=== PATIENT | male | born 1980 | race Caucasian/White ===

== ENCOUNTER 2018-01-07 20:43 | Inpatient (IN) | payer MEDICAID, OTHER ==
[~2018-01-07] VITALS: Ht 175.3 cm; Wt 82.1 kg
[2018-01-07] MEDS ORDERED: DIVA125T32 PO (20:59)
[2018-01-07] MEDS ORDERED: QUET100T PO (20:59)
[2018-01-07] MEDS ORDERED: LORA0.5T2 PO (20:59)
[2018-01-07] MEDS ORDERED: LITH300C3 PO (20:59)
[2018-01-07 21:27] LABS: BASOPHILS % (AUTO) 0.3 % (0.0-2.0); EOSINOPHILS % (AUTO) 3.5 % (1.0-6.0); HEMATOCRIT 43.3 % (41-53); HEMOGLOBIN 15.2 g/dL (13.5-17.5); LYMPHOCYTES # (AUTO) 2.2 K/uL (1.0-4.8); LYMPHOCYTES % (AUTO) 25.9 % (22.0-44.0); MEAN CORPUSCULAR HEMOGLOBIN 30.1 pg (26.0-34.0); MEAN CORPUSCULAR HGB CONC 35.1 G/dL (31.0-37.0); MEAN CORPUSCULAR VOLUME 86 fL (80-100); MONOCYTES # (AUTO) 0.7 K/uL (0.1-1.0); MONOCYTES % (AUTO) 8.1 % (2.0-9.0); NEUTROPHILS # (AUTO) 5.2 K/uL (1.8-7.7); NEUTROPHILS % (AUTO) 62.2 % (40.0-70.0); PLATELET COUNT (AUTO) 257 K/uL (150-450); RED BLOOD CELL COUNT(AUTO) 5.04 MIL/uL (4.50-5.90); RED CELL DISTRIBUTION WIDTH 14.2 % (11.5-14.5)
[2018-01-07 21:37] LABS: ANION GAP 5 mmol/L (8-16); CALCIUM, TOTAL 8.7 mg/dL (8.8-10.5); CARBON DIOXIDE 29 mmol/L (22-29); CHLORIDE 104 mmol/L (98-107); CREATININE 1.02 mg/dL (0.60-1.30); GLOMERULAR FILTR. RATE CALC > 60 mL/min (>60); GLUCOSE,RANDOM 65 mg/dL (70-110); POTASSIUM 3.7 mmol/L (3.5-5.1); SODIUM SERUM 138 mmol/L (136-145); UREA NITROGEN, BLOOD 10 mg/dL (7-18)
[2018-01-07 21:38] LABS: AMPHET/METH SCREEN,URINE POSITIVE (NEGATIVE); BARBITURATE SCREEN, URINE NEGATIVE (NEGATIVE); BENZODIAZEPINES SCREEN,URINE NEGATIVE (NEGATIVE); CANNABINOID SCREEN,URINE NEGATIVE (NEGATIVE); COCAINE SCREEN,URINE NEGATIVE (NEGATIVE); METHADONE SCREEN, URINE NEGATIVE (NEGATIVE); OPIATE SCREEN,URINE NEGATIVE (NEGATIVE); PHENCYCLIDINE SCREEN,URINE NEGATIVE (NEGATIVE)
[2018-01-07 21:43] LABS: ALANINE AMINOTRANSFERASE 22 U/L (12-78); ALBUMIN 3.5 g/dL (3.4-5.0); ALKALINE PHOSPHATASE 84 U/L (46-116); ASPARTATE AMINOTRANSFERASE 18 U/L (15-37); BILIRUBIN,TOTAL 0.2 mg/dL (0.1-1.0); TOTAL PROTEIN, SERUM 7.4 g/dL (6.4-8.2)
[2018-01-07 22:20] LABS: LITHIUM < 0.20 mmol/L (0.60-1.20)
[2018-01-07] MEDS ORDERED: QUEtiapine FUMARATE 100 MG TABLET PO ONE (23:30)
[2018-01-07] MEDS ORDERED: DiphenhydrAMINE HCL 25 MG CAPSULE PO ONE (23:30)
[2018-01-07] MEDS ORDERED: HALOPERIDOL 5 MG TABLET PO PRN (23:30)
[2018-01-08 01:21] VITALS: BP 111/85
[2018-01-08 01:22] VITALS: BP 111/85
[2018-01-08 01:23] VITALS: BP 111/85
[2018-01-08 08:03] VITALS: BP 116/62
[2018-01-08] MEDS ORDERED: BISACODYL 5 MG EC TABLET PO PRN (09:15)
[2018-01-08] MEDS: LORazepam 2 MG TABLET PO PRN ×2 (15:11→21:49)
[2018-01-08 16:33] VITALS: BP 131/88
[2018-01-08] MEDS: QUEtiapine FUMARATE 100 MG TABLET PO SCH (21:49)
[2018-01-08] MEDS: ZOLPIDEM TARTRATE 10 MG TABLET PO PRN (21:49)
[2018-01-09] MEDS: LORazepam 2 MG TABLET PO PRN ×3 (01:09→16:30)
[2018-01-09 02:29] VITALS: BP 129/83
[2018-01-09 08:07] VITALS: BP 118/68
[2018-01-09 08:35] LABS: HEMOGLOBIN A1C 5.8 % (4.5-6.2)
[2018-01-09] MEDS: DIVALPROEX SODIUM 500 MG DR TABLET PO SCH (08:35)
[2018-01-09] MEDS: LITHIUM CARBONATE 300 MG CAPSULE PO SCH ×2 (08:35→16:30)
[2018-01-09] MEDS: QUEtiapine FUMARATE 200 MG TABLET PO SCH (08:35)
[2018-01-09 08:49] LABS: CHOL/HDL RATIO 3.1 (4.2-7.3); FREE T4 (FREE THYROXINE) 0.89 ng/dL (0.76-1.46)
[2018-01-09 16:04] VITALS: BP 115/80
[2018-01-09] MEDS: ZOLPIDEM TARTRATE 10 MG TABLET PO PRN (20:22)
[2018-01-09] MEDS: QUEtiapine FUMARATE 100 MG TABLET PO SCH (20:22)
[2018-01-10] MEDS: LORazepam 2 MG TABLET PO PRN ×4 (04:13→21:48)
[2018-01-10] MEDS: DIVALPROEX SODIUM 500 MG DR TABLET PO SCH (08:12)
[2018-01-10] MEDS: LITHIUM CARBONATE 300 MG CAPSULE PO SCH ×2 (08:12→16:22)
[2018-01-10] MEDS: QUEtiapine FUMARATE 200 MG TABLET PO SCH (08:12)
[2018-01-10] MEDS: QUEtiapine FUMARATE 100 MG TABLET PO SCH (20:23)
[2018-01-10] MEDS: ZOLPIDEM TARTRATE 10 MG TABLET PO PRN (21:38)
[2018-01-11] MEDS: LORazepam 2 MG TABLET PO PRN ×3 (04:00→23:37)
[2018-01-11] MEDS: LITHIUM CARBONATE 300 MG CAPSULE PO SCH ×2 (08:37→17:18)
[2018-01-11] MEDS: DIVALPROEX SODIUM 500 MG DR TABLET PO SCH (08:37)
[2018-01-11] MEDS: QUEtiapine FUMARATE 200 MG TABLET PO SCH (08:37)
[2018-01-11 10:00] VITALS: BP 135/73
[2018-01-11] MEDS: QUEtiapine FUMARATE 100 MG TABLET PO SCH (20:23)
[2018-01-11] MEDS: ZOLPIDEM TARTRATE 10 MG TABLET PO PRN (23:37)
[2018-01-12] MEDS ORDERED: IBUPROFEN 600 MG TABLET PO PRN (06:00)
[2018-01-12] MEDS ORDERED: ACETAMINOPHEN 325 MG TABLET PO PRN (06:00)
[2018-01-12 06:53] VITALS: BP 117/75
[2018-01-12] MEDS: QUEtiapine FUMARATE 200 MG TABLET PO SCH (08:06)
[2018-01-12] MEDS: LORazepam 2 MG TABLET PO PRN ×3 (08:07→20:35)
[2018-01-12] MEDS: LITHIUM CARBONATE 300 MG CAPSULE PO SCH ×2 (08:07→16:12)
[2018-01-12] MEDS: DIVALPROEX SODIUM 500 MG DR TABLET PO SCH (08:07)
[2018-01-12] MEDS: QUEtiapine FUMARATE 100 MG TABLET PO SCH (20:35)
[2018-01-12] MEDS: ZOLPIDEM TARTRATE 10 MG TABLET PO PRN (20:35)
[2018-01-13 01:14] VITALS: BP 140/82
[2018-01-13] MEDS: LORazepam 2 MG TABLET PO PRN ×4 (05:24→21:02)
[2018-01-13 09:09] VITALS: BP 114/62
[2018-01-13] MEDS: QUEtiapine FUMARATE 200 MG TABLET PO SCH ×2 (10:27→17:00)
[2018-01-13] MEDS: LITHIUM CARBONATE 300 MG CAPSULE PO SCH ×2 (10:27→17:01)
[2018-01-13] MEDS: DIVALPROEX SODIUM 500 MG DR TABLET PO SCH (10:27)
[2018-01-13 16:43] VITALS: BP 124/80
[2018-01-13] MEDS: ZOLPIDEM TARTRATE 10 MG TABLET PO PRN (21:02)
[2018-01-14] MEDS: LORazepam 2 MG TABLET PO PRN ×2 (05:44→16:16)
[2018-01-14] MEDS: QUEtiapine FUMARATE 200 MG TABLET PO SCH ×2 (08:47→16:16)
[2018-01-14] MEDS: DIVALPROEX SODIUM 500 MG DR TABLET PO SCH (08:47)
[2018-01-14] MEDS: LITHIUM CARBONATE 300 MG CAPSULE PO SCH ×2 (08:47→16:16)
[2018-01-14 11:20] VITALS: BP 123/80
[2018-01-14] MEDS: LORATADINE 10 MG TABLET PO SCH (13:03)
[2018-01-14] MEDS ORDERED: DiphenhydrAMINE HCL 50 MG/ML VIAL IM ONE (18:45)
[2018-01-14] MEDS ORDERED: LORazepam 2 MG/ML VIAL IM ONE (18:45)
[2018-01-14] MEDS ORDERED: HALOPERIDOL LACTATE 5 MG/ML VIAL IM ONE (18:45)
[2018-01-14] MEDS: MAG HYDROX/AL HYDROX/SIMETH 30 ML SUSP UDCUP PO PRN (21:12)
[2018-01-15 01:30] VITALS: BP 131/65
[2018-01-15] MEDS: ZOLPIDEM TARTRATE 10 MG TABLET PO PRN (01:34)
[2018-01-15] MEDS: LORATADINE 10 MG TABLET PO SCH (08:02)
[2018-01-15] MEDS: QUEtiapine FUMARATE 200 MG TABLET PO SCH ×2 (08:02→17:37)
[2018-01-15] MEDS: LORazepam 2 MG TABLET PO PRN (08:05)
[2018-01-15 08:09] VITALS: BP 136/90
[2018-01-15] MEDS: DIVALPROEX SODIUM 500 MG DR TABLET PO SCH (09:00)
[2018-01-15] MEDS: LITHIUM CARBONATE 300 MG CAPSULE PO SCH ×2 (09:00→17:37)
[2018-01-15] MEDS: MAG HYDROX/AL HYDROX/SIMETH 30 ML SUSP UDCUP PO PRN (12:33)
[2018-01-15] MEDS: ONDANSETRON HCL 4 MG TABLET PO PRN (17:37)
[2018-01-16] MEDS: ZOLPIDEM TARTRATE 10 MG TABLET PO PRN ×2 (00:04→20:16)
[2018-01-16] MEDS: ONDANSETRON HCL 4 MG TABLET PO PRN ×3 (00:05→15:04)
[2018-01-16 04:39] VITALS: BP 132/90
[2018-01-16 08:00] VITALS: BP 131/82
[2018-01-16] MEDS: QUEtiapine FUMARATE 200 MG TABLET PO SCH ×2 (08:40→16:21)
[2018-01-16] MEDS: LORATADINE 10 MG TABLET PO SCH (08:41)
[2018-01-16] MEDS: DIVALPROEX SODIUM 500 MG DR TABLET PO SCH (08:42)
[2018-01-16] MEDS: LITHIUM CARBONATE 300 MG CAPSULE PO SCH ×2 (08:42→16:21)
[2018-01-16 09:33] LABS: VALPROIC ACID 9 mcg/mL (50-100)
[2018-01-16 10:01] LABS: LITHIUM < 0.20 mmol/L (0.60-1.20)
[2018-01-16] MEDS: MAG HYDROX/AL HYDROX/SIMETH 30 ML SUSP UDCUP PO PRN (12:29)
[2018-01-16 16:00] VITALS: BP 117/79
[2018-01-17 02:30] VITALS: BP 138/81
[2018-01-17] MEDS: LORATADINE 10 MG TABLET PO SCH (08:22)
[2018-01-17] MEDS: LITHIUM CARBONATE 300 MG CAPSULE PO SCH ×2 (08:22→17:16)
[2018-01-17] MEDS: QUEtiapine FUMARATE 200 MG TABLET PO SCH (08:22)
[2018-01-17] MEDS: DIVALPROEX SODIUM 500 MG DR TABLET PO SCH (08:22)
[2018-01-17 08:24] VITALS: BP 132/100
[2018-01-17] MEDS: MAG HYDROX/AL HYDROX/SIMETH 30 ML SUSP UDCUP PO PRN ×2 (12:30→20:54)
[2018-01-17] MEDS: ONDANSETRON HCL 4 MG TABLET PO PRN (12:33)
[2018-01-17] MEDS ORDERED: LOPERAMIDE HCL 2 MG CAPSULE PO PRN (15:15)
[2018-01-17] MEDS ORDERED: NICOTINE 21 MG/24 HOUR PATCH TD SCH (15:30)
[2018-01-17 16:23] VITALS: BP 127/78
[2018-01-17] MEDS ORDERED: QUEtiapine FUMARATE 300 MG TABLET PO SCH (17:00)
[2018-01-17] MEDS: ZOLPIDEM TARTRATE 10 MG TABLET PO PRN (20:32)
[2018-01-17] MEDS ORDERED: QUET300T2 PO (22:31)
[2018-01-17] MEDS ORDERED: ONDA4 PO (22:31)
[2018-01-17] MEDS ORDERED: LOPE2 PO (22:31)
[2018-01-17] MEDS ORDERED: LORA10TA7 PO (22:31)
[2018-01-17] MEDS ORDERED: ZOLP10TA7 PO (22:31)
[2018-01-17] MEDS ORDERED: NICO-650 MISC (22:31)
[2018-01-19] MEDS ORDERED: DIVA-78 PO (14:03)
== END 2018-01-18 03:06 | disposition short-term general hospital (02) | DRG 750 ==
LOC: EMS 20:44 → B3A 23:34 → UNDOADMIN 23:34 → EMS 01-08 00:43
PROVIDERS: ADMIT Psychiatry & Neurology Psychiatry; ATTEND Psychiatry & Neurology Psychiatry
DX: F25.9 Schizoaffective disorder, unspecified (principal); R45.851 Suicidal ideations; K59.00 Constipation, unspecified; Z88.8 Allergy status to other drugs, medicaments and biological substances; Z88.5 Allergy status to narcotic agent; Z79.899 Other long term (current) drug therapy; F43.10 Post-traumatic stress disorder, unspecified; F15.11 Other stimulant abuse, in remission
CPT/HCPCS: 83036; 84439; 99285; G0480; J1200; J1630; J2060; Q0162

== ENCOUNTER 2018-01-17 22:15 | Inpatient (IN) | payer MEDICAID, OTHER ==
[~2018-01-17] VITALS: Ht 175.3 cm; Wt 82.4 kg
[~2018-01-17 22:15] MED LIST: DIVA125T32 PO; LITH300C3 PO; LORA0.5T2 PO; QUET100T PO
[2018-01-17] MEDS ORDERED: ONDA4 PO (22:31)
[2018-01-17] MEDS ORDERED: LORA10TA7 PO (22:31)
[2018-01-17] MEDS ORDERED: ZOLP10TA7 PO (22:31)
[2018-01-17] MEDS ORDERED: NICO-650 MISC (22:31)
[2018-01-17] MEDS ORDERED: QUET300T2 PO (22:31)
[2018-01-17] MEDS ORDERED: LOPE2 PO (22:31)
[2018-01-17 23:00] LABS: APPEARANCE,URINE CLEAR (CLEAR); BILIRUBIN,URINE NEGATIVE (NEGATIVE); GLUCOSE, URINE (UA) NEGATIVE (NEGATIVE); KETONES,URINE NEGATIVE (NEGATIVE); LEUKOCYTE ESTERASE ,URINE NEGATIVE (NEGATIVE); NITRATE,URINE NEGATIVE (NEGATIVE); OCCULT BLOOD,URINE NEGATIVE (NEGATIVE); PH,URINE 7.5 (5.0-8.0); PROTEIN,URINE NEGATIVE (NEGATIVE); UROBILINOGEN,URINE 0.2 mg/dL (<=1.0)
[2018-01-17 23:06] LABS: HEMATOCRIT 43.6 % (41-53); HEMOGLOBIN 14.9 g/dL (13.5-17.5); MEAN CORPUSCULAR HEMOGLOBIN 29.3 pg (26.0-34.0); MEAN CORPUSCULAR HGB CONC 34.1 G/dL (31.0-37.0); MEAN CORPUSCULAR VOLUME 86 fL (80-100); PLATELET COUNT (AUTO) 217 K/uL (150-450); RED BLOOD CELL COUNT(AUTO) 5.07 MIL/uL (4.50-5.90); RED CELL DISTRIBUTION WIDTH 14.6 % (11.5-14.5)
[2018-01-17] MEDS ORDERED: ONDANSETRON HCL 4 MG/2 ML VIAL IVP ONE (23:15)
[2018-01-17] MEDS ORDERED: DICYCLOMINE HCL 20 MG TABLET PO ONE (23:15)
[2018-01-17 23:17] LABS: BACTERIA,URINE None Seen /HPF (None Seen); RBC,URINE None Seen /HPF (0-2); SQUAMOUS EPITHELIAL CELL,UR None Seen /LPF (None Seen); WBC,URINE None Seen /HPF (0-5)
[2018-01-17 23:20] LABS: ANION GAP 8 mmol/L (8-16); CALCIUM, TOTAL 9.2 mg/dL (8.8-10.5); CARBON DIOXIDE 30 mmol/L (22-29); CHLORIDE 99 mmol/L (98-107); CREATININE 0.96 mg/dL (0.60-1.30); GLOMERULAR FILTR. RATE CALC > 60 mL/min (>60); GLUCOSE,RANDOM 115 mg/dL (70-110); POTASSIUM 4.6 mmol/L (3.5-5.1); SODIUM SERUM 137 mmol/L (136-145); UREA NITROGEN, BLOOD 17 mg/dL (7-18)
[2018-01-17 23:24] LABS: ALANINE AMINOTRANSFERASE 34 U/L (12-78); ALBUMIN 3.7 g/dL (3.4-5.0); ALKALINE PHOSPHATASE 63 U/L (46-116); ASPARTATE AMINOTRANSFERASE 24 U/L (15-37); BILIRUBIN,TOTAL 0.2 mg/dL (0.1-1.0); LIPASE 115 U/L (73-393); TOTAL PROTEIN, SERUM 7.8 g/dL (6.4-8.2)
[2018-01-17] MEDS ORDERED: LORazepam 2 MG/ML VIAL IVP ONE (23:30)
[2018-01-17] MEDS ORDERED: IOVERSOL 320 MG/ML 100 ML VIAL ONE (23:38)
[2018-01-17] MEDS ORDERED: SODIUM CHLORIDE 0.9% 100 ML ONE (23:38)
[2018-01-17 23:40] LABS: BAND NEUTROPHILS % (MANUAL) 11 % (0-5); EOSINOPHILS % (MANUAL) 2 % (1-6); LYMPHOCYTES % (MANUAL) 11 % (22-44); MONOCYTES % (MANUAL) 3 % (2-9); REACTIVE LYMPHOCYTES 1 % (0-0); SEGMENTED NEUTROPHILS % 72 % (40-70)
[2018-01-17] MEDS ORDERED: DiphenhydrAMINE HCL 50 MG/ML VIAL IVP ONE (23:45)
[2018-01-17] MEDS ORDERED: HALOPERIDOL LACTATE 5 MG/ML VIAL IM ONE (23:45)
[2018-01-18] MEDS ORDERED: SODIUM CHLORIDE 0.9% 1,000 ML IV ONE
[2018-01-18] MEDS ORDERED: CIPROFLOXACIN 400 MG/D5% WATER 200 ML IV ONE (01:15)
[2018-01-18] MEDS ORDERED: MetroNIDAZOLE 500 MG/NACL 100 ML IV ONE (02:00)
[2018-01-18] MEDS ORDERED: 0.9% SODIUM CHLORIDE 10 ML SYRINGE IVP PRN ×2 (02:00→07:15)
[2018-01-18] MEDS ORDERED: ACETAMINOPHEN 325 MG TABLET PO PRN (02:00)
[2018-01-18] MEDS ORDERED: LORazepam 2 MG/ML VIAL IVP ONE (02:00)
[2018-01-18] MEDS ORDERED: ONDANSETRON HCL 4 MG/2 ML VIAL IVP PRN ×2 (02:00→07:15)
[2018-01-18 02:50] LABS: LACTIC ACID 2.2 mmol/L (0.4-2.0)
[2018-01-18] MEDS ORDERED: SODIUM CHLORIDE 0.9% 100 ML ONE (02:53)
[2018-01-18 02:59] VITALS: BP 115/78
[2018-01-18] MEDS ORDERED: ZOLPIDEM TARTRATE 10 MG TABLET PO PRN (07:15)
[2018-01-18] MEDS ORDERED: ONDANSETRON HCL 4 MG TABLET PO PRN (07:15)
[2018-01-18] MEDS ORDERED: ZOLPIDEM TARTRATE 5 MG TABLET PO PRN (07:15)
[2018-01-18 07:48] VITALS: BP 141/56
[2018-01-18] MEDS: SODIUM CHLORIDE 0.9% 1,000 ML IV SCH (08:57)
[2018-01-18] MEDS: PANTOPRAZOLE SODIUM 40 MG/VIAL IVP SCH (08:57)
[2018-01-18] MEDS: LORATADINE 10 MG TABLET PO SCH (08:58)
[2018-01-18] MEDS: QUEtiapine FUMARATE 300 MG TABLET PO SCH ×2 (08:58→20:21)
[2018-01-18] MEDS: MetroNIDAZOLE 500 MG/NACL 100 ML IV SCH ×2 (11:26→17:42)
[2018-01-18 12:00] VITALS: BP 101/58
[2018-01-18] MEDS: CIPROFLOXACIN 400 MG/D5% WATER 200 ML IV SCH (15:19)
[2018-01-18 15:35] VITALS: BP 103/71
[2018-01-18 19:53] VITALS: BP 123/62
[2018-01-18 23:33] VITALS: BP 123/65
[2018-01-19] MEDS: SODIUM CHLORIDE 0.9% 1,000 ML IV SCH
[2018-01-19] MEDS: CIPROFLOXACIN 400 MG/D5% WATER 200 ML IV SCH (02:27)
[2018-01-19] MEDS: MetroNIDAZOLE 500 MG/NACL 100 ML IV SCH ×2 (03:36→09:15)
[2018-01-19 05:28] VITALS: BP 104/72
[2018-01-19 06:13] LABS: BASOPHILS % (AUTO) 0.3 % (0.0-2.0); EOSINOPHILS % (AUTO) 5.3 % (1.0-6.0); HEMATOCRIT 40.1 % (41-53); HEMOGLOBIN 13.8 g/dL (13.5-17.5); LYMPHOCYTES # (AUTO) 2.3 K/uL (1.0-4.8); LYMPHOCYTES % (AUTO) 24.4 % (22.0-44.0); MEAN CORPUSCULAR HGB CONC 34.5 G/dL (31.0-37.0); MEAN CORPUSCULAR VOLUME 87 fL (80-100); MONOCYTES # (AUTO) 1.2 K/uL (0.1-1.0); MONOCYTES % (AUTO) 12.4 % (2.0-9.0); NEUTROPHILS # (AUTO) 5.4 K/uL (1.8-7.7); NEUTROPHILS % (AUTO) 57.6 % (40.0-70.0); PLATELET COUNT (AUTO) 216 K/uL (150-450); RED BLOOD CELL COUNT(AUTO) 4.61 MIL/uL (4.50-5.90); RED CELL DISTRIBUTION WIDTH 14.8 % (11.5-14.5)
[2018-01-19 06:31] LABS: ALANINE AMINOTRANSFERASE 27 U/L (12-78); ALKALINE PHOSPHATASE 53 U/L (46-116); ANION GAP 7 mmol/L (8-16); ASPARTATE AMINOTRANSFERASE 16 U/L (15-37); BILIRUBIN,TOTAL 0.3 mg/dL (0.1-1.0); CALCIUM, TOTAL 8.4 mg/dL (8.8-10.5); CARBON DIOXIDE 27 mmol/L (22-29); CHLORIDE 104 mmol/L (98-107); CREATININE 0.89 mg/dL (0.60-1.30); GLOMERULAR FILTR. RATE CALC > 60 mL/min (>60); GLUCOSE,RANDOM 106 mg/dL (70-110); POTASSIUM 3.9 mmol/L (3.5-5.1); SODIUM SERUM 138 mmol/L (136-145); TOTAL PROTEIN, SERUM 6.4 g/dL (6.4-8.2); UREA NITROGEN, BLOOD 13 mg/dL (7-18)
[2018-01-19 07:54] VITALS: BP 118/64
[2018-01-19] MEDS: LORATADINE 10 MG TABLET PO SCH (07:54)
[2018-01-19] MEDS: QUEtiapine FUMARATE 300 MG TABLET PO SCH ×2 (07:54→20:15)
[2018-01-19] MEDS: PANTOPRAZOLE SODIUM 40 MG/VIAL IVP SCH ×2 (07:55→09:20)
[2018-01-19 12:32] VITALS: BP 107/65
[2018-01-19] MEDS ORDERED: DIVA-78 PO (14:03)
[2018-01-19 15:37] VITALS: BP 110/70
[2018-01-19] MEDS: MetroNIDAZOLE 500 MG TABLET PO SCH ×2 (16:22→23:18)
[2018-01-19] MEDS: NICOTINE 21 MG/24 HOUR PATCH TD SCH (16:22)
[2018-01-19 19:14] VITALS: BP 134/89
[2018-01-19] MEDS: LITHIUM CARBONATE 300 MG CAPSULE PO SCH (20:15)
[2018-01-19] MEDS: DIVALPROEX SODIUM 500 MG DR TABLET PO SCH (20:15)
[2018-01-19] MEDS: CIPROFLOXACIN HCL 500 MG TABLET PO SCH (20:15)
[2018-01-19] MEDS ORDERED: ZOLPIDEM TARTRATE 10 MG TABLET PO PRN (21:15)
[2018-01-19 23:07] VITALS: BP 129/77
[2018-01-20 03:38] VITALS: BP 115/78
[2018-01-20 07:10] VITALS: BP 127/71
[2018-01-20] MEDS: LITHIUM CARBONATE 300 MG CAPSULE PO SCH (07:53)
[2018-01-20] MEDS: MetroNIDAZOLE 500 MG TABLET PO SCH (07:53)
[2018-01-20] MEDS: NICOTINE 21 MG/24 HOUR PATCH TD SCH (07:53)
[2018-01-20] MEDS: CIPROFLOXACIN HCL 500 MG TABLET PO SCH (07:54)
[2018-01-20] MEDS: QUEtiapine FUMARATE 300 MG TABLET PO SCH (07:54)
[2018-01-20] MEDS: DIVALPROEX SODIUM 500 MG DR TABLET PO SCH (07:54)
[2018-01-20 11:00] VITALS: BP 137/80
== END 2018-01-20 14:48 | disposition home or self-care (01) | DRG 249 ==
LOC: EMS 22:17 → 5S 01-18 01:30 → 6N 01-18 16:30
PROVIDERS: ADMIT Internal Medicine; ATTEND Internal Medicine
DX: A08.4 Viral intestinal infection, unspecified (principal); F95.2 Tourette's disorder; F20.9 Schizophrenia, unspecified; F43.10 Post-traumatic stress disorder, unspecified; E86.0 Dehydration; Z87.891 Personal history of nicotine dependence; Z88.5 Allergy status to narcotic agent; Z88.8 Allergy status to other drugs, medicaments and biological substances
CPT/HCPCS: 74177; 83605; 83735; 87040; 96365; 96375; 96376; 99285; C9113; J0744; J1200; J2060; J2405; J3490; J7030; J7050

== ENCOUNTER 2018-06-11 17:07 | Inpatient (IN) | payer MEDICAID, OTHER ==
[~2018-06-11] VITALS: Ht 175.3 cm; Wt 82.3 kg
[~2018-06-11 17:07] MED LIST changes: +DIVA-78 PO; -DIVA125T32 PO; -LITH300C3 PO; -LORA0.5T2 PO; -QUET100T PO; +QUET300T2 PO
[2018-06-11] MEDS ORDERED: ARIP2 PO (18:09)
[2018-06-11] MEDS ORDERED: ZOLP5 PO (18:09)
[2018-06-11] MEDS ORDERED: OLAN2.5T3 PO (18:09)
[2018-06-11] MEDS ORDERED: LITH300C3 PO (18:09)
[2018-06-11] MEDS ORDERED: DiphenhydrAMINE HCL 50 MG/ML VIAL IM ONE (18:30)
[2018-06-11] MEDS ORDERED: QUEtiapine FUMARATE 100 MG TABLET PO ONE (18:30)
[2018-06-11] MEDS ORDERED: LORazepam 2 MG/ML VIAL IM ONE (18:30)
[2018-06-11 18:41] LABS: BASOPHILS % (AUTO) 0.3 % (0.0-2.0); EOSINOPHILS % (AUTO) 5.2 % (1.0-6.0); HEMOGLOBIN 15.7 g/dL (13.5-17.5); LYMPHOCYTES # (AUTO) 1.7 K/uL (1.0-4.8); LYMPHOCYTES % (AUTO) 17.2 % (22.0-44.0); MEAN CORPUSCULAR HEMOGLOBIN 30.3 pg (26.0-34.0); MEAN CORPUSCULAR HGB CONC 34.9 G/dL (31.0-37.0); MEAN CORPUSCULAR VOLUME 87 fL (80-100); MONOCYTES # (AUTO) 0.7 K/uL (0.1-1.0); MONOCYTES % (AUTO) 6.8 % (2.0-9.0); NEUTROPHILS # (AUTO) 6.9 K/uL (1.8-7.7); NEUTROPHILS % (AUTO) 70.5 % (40.0-70.0); PLATELET COUNT (AUTO) 241 K/uL (150-450); RED CELL DISTRIBUTION WIDTH 14.4 % (11.5-14.5)
[2018-06-11 18:52] LABS: ANION GAP 5 mmol/L (8-16); CALCIUM, TOTAL 8.8 mg/dL (8.8-10.5); CARBON DIOXIDE 30 mmol/L (22-29); CHLORIDE 104 mmol/L (98-107); CREATININE 1.55 mg/dL (0.60-1.30); GLOMERULAR FILTR. RATE CALC 51 mL/min (>60); GLUCOSE,RANDOM 98 mg/dL (70-110); POTASSIUM 4.2 mmol/L (3.5-5.1); SODIUM SERUM 139 mmol/L (136-145); UREA NITROGEN, BLOOD 18 mg/dL (7-18)
[2018-06-11 18:55] LABS: AMPHET/METH SCREEN,URINE NEGATIVE (NEGATIVE); BARBITURATE SCREEN, URINE NEGATIVE (NEGATIVE); BENZODIAZEPINES SCREEN,URINE NEGATIVE (NEGATIVE); CANNABINOID SCREEN,URINE NEGATIVE (NEGATIVE); COCAINE SCREEN,URINE NEGATIVE (NEGATIVE); METHADONE SCREEN, URINE NEGATIVE (NEGATIVE); OPIATE SCREEN,URINE NEGATIVE (NEGATIVE)
[2018-06-11 18:56] LABS: PHENCYCLIDINE SCREEN,URINE NEGATIVE (NEGATIVE)
[2018-06-11 18:57] LABS: ALANINE AMINOTRANSFERASE 24 U/L (12-78); ALBUMIN 3.9 g/dL (3.4-5.0); ALKALINE PHOSPHATASE 61 U/L (46-116); ASPARTATE AMINOTRANSFERASE 17 U/L (15-37); BILIRUBIN,TOTAL 0.1 mg/dL (0.1-1.0); TOTAL PROTEIN, SERUM 7.6 g/dL (6.4-8.2)
[2018-06-11 20:40] VITALS: BP 128/77
[2018-06-11] MEDS ORDERED: PETROLATUM,WHITE 71 GM JELLY TP PRN (21:15)
[2018-06-11] MEDS ORDERED: ACETAMINOPHEN 325 MG TABLET PO PRN (21:15)
[2018-06-11] MEDS ORDERED: IBUPROFEN 400 MG TABLET PO PRN (21:15)
[2018-06-11] MEDS ORDERED: DOCUSATE SODIUM 100 MG CAPSULE PO PRN (21:15)
[2018-06-11] MEDS ORDERED: NICOTINE 14 MG/24 HOUR PATCH TD PRN (21:15)
[2018-06-11] MEDS ORDERED: ALBUTEROL SULFATE HFA 90 MCG/PUFF 8 GM INHALER IH PRN (21:15)
[2018-06-11] MEDS ORDERED: MAGNESIUM HYDROXIDE SUSPENSION 30 ML UDCUP PO PRN (21:15)
[2018-06-11] MEDS ORDERED: ONDANSETRON HCL 4 MG TABLET PO PRN (21:15)
[2018-06-11] MEDS ORDERED: GuaiFENesin/D-METHORPHAN [SUGAR-FREE] 200-20MG/10 ML SYRUP UDCUP PO PRN (21:15)
[2018-06-11] MEDS ORDERED: MAG HYDROX/AL HYDROX/SIMETH ES 30 ML SUSPENSION UDCUP PO PRN (21:15)
[2018-06-11] MEDS ORDERED: CloNIDine HCL 0.1 MG TABLET PO PRN (21:15)
[2018-06-11] MEDS ORDERED: LOPERAMIDE HCL 2 MG CAPSULE PO PRN (21:15)
[2018-06-12 08:40] VITALS: BP 133/80
[2018-06-12 16:28] VITALS: BP 123/78
[2018-06-12] MEDS: QUEtiapine FUMARATE 300 MG TABLET PO SCH (17:07)
[2018-06-12] MEDS: LORazepam 2 MG TABLET PO PRN (17:40)
[2018-06-13] MEDS: OLANZapine 5 MG TABLET PO SCH (08:03)
[2018-06-13] MEDS: QUEtiapine FUMARATE 300 MG TABLET PO SCH ×2 (08:03→17:37)
[2018-06-13] MEDS: DIVALPROEX SODIUM 500 MG DR TABLET PO SCH (08:03)
[2018-06-13] MEDS: LITHIUM CARBONATE 300 MG CAPSULE PO SCH (08:03)
[2018-06-13 08:36] VITALS: BP 100/60
[2018-06-13 16:45] VITALS: BP 100/61
[2018-06-13] MEDS: ZOLPIDEM TARTRATE 10 MG TABLET PO PRN (21:27)
[2018-06-14] MEDS: DIVALPROEX SODIUM 500 MG DR TABLET PO SCH (08:45)
[2018-06-14] MEDS: OLANZapine 5 MG TABLET PO SCH (08:45)
[2018-06-14] MEDS: LITHIUM CARBONATE 300 MG CAPSULE PO SCH (08:46)
[2018-06-14] MEDS: QUEtiapine FUMARATE 300 MG TABLET PO SCH ×2 (08:47→17:37)
[2018-06-14] MEDS: LORazepam 2 MG TABLET PO PRN (12:01)
[2018-06-14 16:23] VITALS: BP 116/71
[2018-06-14] MEDS: ZOLPIDEM TARTRATE 10 MG TABLET PO PRN (20:48)
[2018-06-15] MEDS: LORazepam 2 MG TABLET PO PRN ×3 (03:24→23:43)
[2018-06-15] MEDS: QUEtiapine FUMARATE 300 MG TABLET PO SCH ×2 (08:39→17:51)
[2018-06-15] MEDS: LITHIUM CARBONATE 300 MG CAPSULE PO SCH ×2 (08:39→17:51)
[2018-06-15] MEDS: OLANZapine 5 MG TABLET PO SCH (08:39)
[2018-06-15] MEDS: DIVALPROEX SODIUM 500 MG DR TABLET PO SCH (08:40)
[2018-06-15] MEDS ORDERED: LORazepam 2 MG/ML VIAL ONE (10:50)
[2018-06-15] MEDS ORDERED: LORazepam 2 MG/ML VIAL IM ONE (11:00)
[2018-06-15] MEDS: ZOLPIDEM TARTRATE 10 MG TABLET PO PRN (21:53)
[2018-06-15] MEDS: QUEtiapine FUMARATE 100 MG TABLET PO PRN (23:43)
[2018-06-16] MEDS: QUEtiapine FUMARATE 100 MG TABLET PO PRN (05:22)
[2018-06-16] MEDS: LORazepam 2 MG TABLET PO PRN ×3 (05:22→19:00)
[2018-06-16] MEDS: DIVALPROEX SODIUM 500 MG DR TABLET PO SCH (08:17)
[2018-06-16] MEDS: QUEtiapine FUMARATE 300 MG TABLET PO SCH ×2 (08:17→18:00)
[2018-06-16] MEDS: LITHIUM CARBONATE 300 MG CAPSULE PO SCH ×2 (08:17→18:00)
[2018-06-16] MEDS: OLANZapine 10 MG TABLET PO SCH (11:59)
[2018-06-16] MEDS: ZOLPIDEM TARTRATE 10 MG TABLET PO PRN (21:00)
[2018-06-17] MEDS: LORazepam 2 MG TABLET PO PRN ×3 (00:01→20:32)
[2018-06-17] MEDS: QUEtiapine FUMARATE 100 MG TABLET PO PRN (00:01)
[2018-06-17] MEDS: QUEtiapine FUMARATE 300 MG TABLET PO SCH ×2 (09:58→16:14)
[2018-06-17] MEDS: OLANZapine 10 MG TABLET PO SCH (09:58)
[2018-06-17] MEDS: LITHIUM CARBONATE 300 MG CAPSULE PO SCH ×2 (09:59→16:14)
[2018-06-17] MEDS: DIVALPROEX SODIUM 500 MG DR TABLET PO SCH (09:59)
[2018-06-17] MEDS: ZOLPIDEM TARTRATE 10 MG TABLET PO PRN (20:32)
[2018-06-18] MEDS: LORazepam 2 MG TABLET PO PRN ×3 (00:53→13:38)
[2018-06-18] MEDS: QUEtiapine FUMARATE 100 MG TABLET PO PRN ×3 (00:53→13:39)
[2018-06-18] MEDS: OLANZapine 10 MG TABLET PO SCH ×2 (07:58→17:01)
[2018-06-18] MEDS: LITHIUM CARBONATE 300 MG CAPSULE PO SCH ×3 (07:58→17:01)
[2018-06-18] MEDS: QUEtiapine FUMARATE 300 MG TABLET PO SCH (07:58)
[2018-06-18] MEDS: DIVALPROEX SODIUM 500 MG DR TABLET PO SCH (07:58)
[2018-06-18 09:21] VITALS: BP 119/87
[2018-06-18] MEDS ORDERED: LORazepam 2 MG/ML VIAL IM ONE (18:15)
[2018-06-18] MEDS ORDERED: DiphenhydrAMINE HCL 50 MG/ML VIAL IM ONE (18:15)
[2018-06-18] MEDS: ZOLPIDEM TARTRATE 10 MG TABLET PO PRN (21:17)
[2018-06-19] MEDS: LORazepam 2 MG TABLET PO PRN ×4 (03:10→20:45)
[2018-06-19] MEDS: QUEtiapine FUMARATE 100 MG TABLET PO PRN ×4 (03:10→20:45)
[2018-06-19] MEDS: LITHIUM CARBONATE 300 MG CAPSULE PO SCH ×3 (08:05→16:13)
[2018-06-19] MEDS: OLANZapine 10 MG TABLET PO SCH ×2 (08:05→16:13)
[2018-06-19 16:30] VITALS: BP 128/79
[2018-06-19] MEDS: ZOLPIDEM TARTRATE 10 MG TABLET PO PRN (22:00)
[2018-06-19] MEDS ORDERED: LORazepam 2 MG/ML VIAL IM ONE (23:15)
[2018-06-19] MEDS ORDERED: DiphenhydrAMINE HCL 50 MG/ML VIAL IM ONE (23:15)
[2018-06-20] MEDS: QUEtiapine FUMARATE 100 MG TABLET PO PRN ×4 (00:46→20:15)
[2018-06-20] MEDS: LORazepam 2 MG TABLET PO PRN ×4 (00:46→22:03)
[2018-06-20] MEDS: LITHIUM CARBONATE 300 MG CAPSULE PO SCH ×3 (07:20→16:02)
[2018-06-20] MEDS: OLANZapine 10 MG TABLET PO SCH ×2 (07:20→16:02)
[2018-06-20] MEDS ORDERED: DiphenhydrAMINE HCL 50 MG/ML VIAL IM ONE ×2 (09:00→16:30)
[2018-06-20 09:42] VITALS: BP 140/98
[2018-06-20] MEDS ORDERED: LORazepam 2 MG/ML VIAL IM ONE (16:30)
[2018-06-20] MEDS: ZOLPIDEM TARTRATE 10 MG TABLET PO PRN (22:03)
[2018-06-21] MEDS: QUEtiapine FUMARATE 100 MG TABLET PO PRN ×3 (03:48→12:58)
[2018-06-21] MEDS: LORazepam 2 MG TABLET PO PRN ×4 (03:49→18:33)
[2018-06-21] MEDS: OLANZapine 10 MG TABLET PO SCH (07:29)
[2018-06-21] MEDS: LITHIUM CARBONATE 300 MG CAPSULE PO SCH ×3 (07:29→16:26)
[2018-06-21 16:24] VITALS: BP 113/76
[2018-06-21] MEDS: QUEtiapine FUMARATE 200 MG TABLET PO SCH (16:26)
[2018-06-21] MEDS: DIVALPROEX SODIUM 500 MG DR TABLET PO SCH (16:27)
[2018-06-21] MEDS: ZOLPIDEM TARTRATE 10 MG TABLET PO PRN (20:30)
[2018-06-21] MEDS: ChlorproMAZINE HCL 50 MG TABLET PO PRN (22:18)
[2018-06-21] MEDS ORDERED: DiphenhydrAMINE HCL 50 MG/ML VIAL IM ONE (23:30)
[2018-06-21] MEDS ORDERED: LORazepam 2 MG/ML VIAL IM ONE (23:30)
[2018-06-22] MEDS: LITHIUM CARBONATE 300 MG CAPSULE PO SCH ×3 (08:14→17:11)
[2018-06-22] MEDS: DIVALPROEX SODIUM 500 MG DR TABLET PO SCH ×3 (08:14→17:00)
[2018-06-22] MEDS: QUEtiapine FUMARATE 200 MG TABLET PO SCH ×2 (08:14→14:09)
[2018-06-22 08:18] VITALS: BP 152/69
[2018-06-22] MEDS: LORazepam 2 MG TABLET PO PRN (10:27)
[2018-06-22 16:05] VITALS: BP_SYST 105; BP_SYST 68; BP_DIAS 72; BP_DIAS 80
[2018-06-22] MEDS: QUEtiapine FUMARATE 300 MG TABLET PO SCH ×2 (17:11→20:16)
[2018-06-22] MEDS: ZOLPIDEM TARTRATE 10 MG TABLET PO PRN (20:33)
[2018-06-23] MEDS: LORazepam 2 MG TABLET PO PRN ×2 (00:23→16:56)
[2018-06-23] MEDS: ChlorproMAZINE HCL 50 MG TABLET PO PRN ×3 (04:12→17:20)
[2018-06-23 08:12] VITALS: BP 140/95
[2018-06-23] MEDS: DIVALPROEX SODIUM 500 MG DR TABLET PO SCH ×3 (09:00→16:56)
[2018-06-23] MEDS: QUEtiapine FUMARATE 200 MG TABLET PO SCH (09:40)
[2018-06-23] MEDS: LITHIUM CARBONATE 300 MG CAPSULE PO SCH ×3 (09:40→16:56)
[2018-06-23] MEDS: QUEtiapine FUMARATE 300 MG TABLET PO SCH ×2 (16:56→21:42)
[2018-06-23 17:32] VITALS: BP 129/77
[2018-06-23] MEDS ORDERED: DiphenhydrAMINE HCL 50 MG/ML VIAL IM ONE (19:45)
[2018-06-23] MEDS ORDERED: LORazepam 2 MG/ML VIAL IM ONE (19:45)
[2018-06-24] MEDS: LORazepam 2 MG TABLET PO PRN ×3 (01:35→12:18)
[2018-06-24] MEDS: ZOLPIDEM TARTRATE 10 MG TABLET PO PRN (01:35)
[2018-06-24] MEDS: ChlorproMAZINE HCL 50 MG TABLET PO PRN ×2 (05:47→12:17)
[2018-06-24] MEDS: LITHIUM CARBONATE 300 MG CAPSULE PO SCH ×2 (07:38→12:17)
[2018-06-24] MEDS: DIVALPROEX SODIUM 500 MG DR TABLET PO SCH ×3 (07:38→12:21)
[2018-06-24] MEDS: QUEtiapine FUMARATE 200 MG TABLET PO SCH (07:38)
[2018-06-24 08:02] VITALS: BP 141/83
[2018-06-24] MEDS ORDERED: QUET200T PO (10:06)
[2018-06-24] MEDS ORDERED: QUET300T2 PO (10:07)
== END 2018-06-24 14:15 | disposition home or self-care (01) | DRG 750 ==
LOC: EMS 17:08 → 3EC 19:55
PROVIDERS: ADMIT Psychiatry & Neurology Child & Adolescent Psychiatry; ATTEND Psychiatry & Neurology Child & Adolescent Psychiatry
DX: F20.0 Paranoid schizophrenia (principal); F95.2 Tourette's disorder; R45.851 Suicidal ideations; I10 Essential (primary) hypertension; F43.10 Post-traumatic stress disorder, unspecified; F17.210 Nicotine dependence, cigarettes, uncomplicated; Z28.21 Immunization not carried out because of patient refusal; Z88.8 Allergy status to other drugs, medicaments and biological substances; Z79.899 Other long term (current) drug therapy
CPT/HCPCS: 96372; G0480; J1200; J2060; J3230

== ENCOUNTER 2025-01-12 01:41 | Emergency (ER) | payer MEDICAID, OTHER ==
[~2025-01-12] VITALS: Ht 172.7 cm; Wt 92.0 kg
[~2025-01-12 01:41] MED LIST changes: +DIVA-112 PO; -DIVA-78 PO; +OLAN15TA98 PO; -QUET300T2 PO; +QUET400T PO
[2025-01-12 04:00] VITALS: TEMP 98.1
[2025-01-12 04:46] VITALS: BP 118/65; PULSE 91; RESP 16; O2SAT 97
[2025-01-12 04:50] LABS: COVID AG,FIA SOURCE NASAL SWAB
[2025-01-12 06:02] LABS: SARS-COV2 (COVID) ANTIGEN,FIA Negative (Negative)
[2025-01-12] MEDS: ACETAMINOPHEN 500 MG TABLET PO ONE (07:28)
== END 2025-01-12 10:11 | disposition home or self-care (01) ==
LOC: EMS 01:44
DX: F20.9 Schizophrenia, unspecified (principal); Z79.899 Other long term (current) drug therapy; Z88.8 Allergy status to other drugs, medicaments and biological substances; Z20.822 Contact with and (suspected) exposure to COVID-19
CPT/HCPCS: 99285; Z7502